=== PATIENT | male | born 1980 | race Caucasian/White ===

== ENCOUNTER 2020-02-14 15:12 | Emergency (ER) | payer BC, OTHER ==
[2020-02-14] MEDS ORDERED: Ibuprofen 800 MG Tab PO ONE (15:37)
--- NOTE | 2020-02-14 15:42 | EDM.PDOC ---
ED HPI GENERAL MEDICAL PROBLEM - General Chief Complaint: Respiratory Problem Stated Complaint: SOB/COUGH/SORE THROAT Time Seen by Provider: 02/14/20 15:26 Source of Information: Reports: Patient History Limitations: Reports: No Limitations - History of Present Illness INITIAL COMMENTS - FREE TEXT/NARRATIVE: 39-year-old male presents to the ED for evaluation of minimally productive cough for the better part of 6 days. Sore throat for 4 days which is better the last day and a half. Decreased appetite. Increased shortness of breath gradually worsening over the last 2 days. 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 Symptoms started about 07 February and he was tested for COVID at that time and proved to be negative. However symptoms have continued and in fact worsened as far shortness of breath since that time. He is not bringing up any sputum. Denies any hemoptysis. Fever but no defined chills. Diarrhea nausea or vomiting. No genitourinary complaints patient has a history of asthma and uses an inhaler daily as well as allergic rhinitis. He is a very large fellow at 208 kg but denies any history of diabetes. Onset: Gradual Onset Date: 02/08/20 Duration: Day(s):, Constant, Getting Worse (Getting more short of breath.) Location: Reports: Chest (Dyspnea worse on exertion.), Other (Fever) Quality: Reports: Other (Dyspnea getting worse over the last 2 days) Severity: Moderate Improves with: Reports: Rest Worsens with: Reports: Movement (Worse on exertion.) Context: Reports: Sick Contact (Works in a survey crew in apparent area over the remembers that he travels within the same vehicle to the workplace have proved to be COVID positive.). Denies: Activity, Exercise, Lifting, Trauma, Other Associated Symptoms: Reports: Cough (Nonproductive), Fever/Chills (Fever with no chills), Loss of Appetite, Malaise, Shortness of Breath. 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.) - Related Data Allergies Allergy/AdvReac Type Severity Reaction Status Date / Time No Known Allergies Allergy Verified 02/14/20 15:35 Home Meds: Home Meds Albuterol [Proair HFA] 1 puff INH QID PRN 06/18/15 [History] Formoterol/Mometasone [Dulera 100 MCG/5 MCG] 1 puff INH BID 06/18/15 [History] Montelukast [Singulair] 10 mg PO DAILY 06/18/15 [History] Albuterol [Proventil Neb Soln] 2.5 mg .XX Q3H #60 neb 02/14/20 [Rx] Albuterol [Proventil Neb Soln] 2.5 mg .XX Q3H PRN #4 neb 02/14/20 [Rx] Doxycycline [Vibra-Tabs] 100 mg PO Q12HR #20 tab 02/14/20 [Rx] amLODIPine [Norvasc] 10 mg PO DAILY #30 tab 02/14/20 [Rx] dexAMETHasone [Dexamethasone] 4 mg PO Q8H #15 tablet 02/14/20 [Rx] Past Medical History Other HEENT History: sinus surgery, wears glasses Cardiovascular History: Reports: Hypertension Respiratory History: Reports: Asthma (History of asthma and has a home nebulizer. He does not have any albuterol for it or he states that what he does have is way out of date. 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 Denies: Chills, Weight Loss HEENT: Reports: Glasses Respiratory: Reports: Shortness of Breath, Cough. Denies: Wheezing, Pleuritic Chest Pain, Sputum, Hemoptysis (Nonproductive), Other Cardiovascular: Reports: Dyspnea on Exertion. Denies: No Symptoms, Chest Pain, Blood Pressure Problem (Blood pressure is markedly elevated likely not correct since the pulse pressure is too close together.), Claudication, Edema, Lightheadedness, Orthopnea, Palpitations, PND, Syncope Endocrine: Reports: Fatigue GI/Abdominal: Reports: Decreased Appetite, Nausea, Vomiting. Denies: Diarrhea : Reports: No Symptoms Musculoskeletal: Reports: No Symptoms Skin: Reports: No Symptoms Neurological: Reports: No Symptoms Psychiatric: Reports: No Symptoms Hematologic/Lymphatic: Reports: No Symptoms Immunologic: Reports: No Symptoms ED EXAM, GENERAL - Physical Exam Exam: See Below Exam Limited By: Other (Temperature is 36.9 although he feels warmer to palpation than this. Heart rate resting is 114 respiratory is 22 with O2 sats of 95% on room air BP recorded at 161/124 which is felt to be incorrect due to the pulse pressure being too close together. He is a very large fellow and a very large coffee is going to be needed to obtain accurate BP.) General Appearance: Alert, No Apparent Distress, Other (Patient does feel warm to palpation.) Eye Exam: Bilateral Eye: Normal Inspection, PERRL Ears: Normal TMs Throat/Mouth: Normal Inspection, Normal Lips, Normal Oropharynx, Other (No signs of oropharyngeal inflammation) Head: Atraumatic, Normocephalic Neck: Normal Inspection, Supple, Non-Tender, Full Range of Motion. No: Carotid Bruit, Lymphadenopathy (L), Lymphadenopathy (R) Respiratory/Chest: No Accessory Muscle Use, Chest Non-Tender, Respiratory Distress (Mild tachypnea.), Decreased Breath Sounds (Sounds are diminished to both posterior lung saldivar due to his size. I feel there are fine crackles in both bases that do not clear with coughing.). No: Lungs Clear ( The worse on the right side as compared to the left.), Normal Breath Sounds Cardiovascular: Regular Rate, Rhythm, No Edema, No Gallop, No JVD, No Murmur, No Rub Peripheral Pulses: 2+: Posterior Tibial (L), Posterior Tibial (R), Dorsalis Pedis (L), Dorsalis Pedis (R), 3+: Carotid (L), Carotid (R) GI/Abdominal: Normal Bowel Sounds, Soft, Non-Tender, No Organomegaly, No Abnormal Bruit, No Mass, Pelvis Stable, Other (Abdomen is morbidly obese. This limits ability to palpate any solid organs. No masses or hernias identified.) Back Exam: Normal Inspection, Full Range of Motion, Other (Mildly increased lordotic curvature lumbar spine). No: CVA Tenderness (L), CVA Tenderness (R) Extremities: Normal Inspection, Normal Range of Motion, Non-Tender, Pedal Edema (Edema at the ankles.) Neurological: Alert, CN II-XII Intact, Normal Cognition Psychiatric: Normal Affect, Normal Mood Skin Exam: Warm, Dry, Intact, Normal Color, No Rash EKG INTERPRETATION EKG Date: 02/14/20 Time: 16:43 Rhythm: Other (Sinus tachycardia) Rate (Beats/Min): 104 Jasper: LAD-Left Jasper Deviation (-56 degrees.) P-Wave: Enlarged (Left atrial hypertrophy pattern) QRS: Other (Poor R wave progression through all the anterior septal leads consider old anteroseptal myocardial infarction. There are Q waves in leads III and aVF combined with an old inferior wall myocardial infarction.) QT: Normal EKG Interpretation Comments: Abnormal ECG Course - Vital Signs Last Recorded V/S: Last Vital Signs Temp 36.9 C 02/14/20 15:27 Pulse 114 H 02/14/20 15:27 Resp 22 H 02/14/20 15:27 BP 182/116 H 02/14/20 19:34 Pulse Ox 94 L 02/14/20 21:20 - Orders/Labs/Meds Orders: Active Orders 24 hr Category Date Time Status EKG Documentation Completion [RC] STAT Care 02/14/20 15:39 Active RT Aerosol Therapy [RC] ASDIRECTED Care 02/14/20 21:11 Active CULTURE BLOOD [BC] Stat Lab 02/14/20 16:00 Received CULTURE BLOOD [BC] Stat Lab 02/14/20 16:50 Received URINALYSIS W/MICROSCOPIC [UA W/MICROSCOPIC] [URIN] Stat Lab 02/14/20 15:39 Ordered Albuterol/Ipratropium [DuoNeb 3.0-0.5 MG/3 ML] Med 02/14/20 21:11 Active 3 ml NEB Q4H PRN Dextrose 5%-0.9% NaCl [Dextrose 5%-Normal Saline] 1,000 Med 02/14/20 15:45 Active ml IV ASDIRECTED Sodium Chloride 0.9% [Normal Saline] 45 ml Med 02/14/20 18:00 Active IV ASDIRECTED Sodium Chloride 0.9% [Normal Saline] 45 ml Med 02/14/20 19:00 Active IV ASDIRECTED Sodium Chloride 0.9% [Saline Flush] Med 02/14/20 17:49 Active 10 ml FLUSH ONETIME PRN Sodium Chloride 0.9% [Saline Flush] Med 02/14/20 18:53 Active 10 ml FLUSH ONETIME PRN Blood Culture x2 Reflex Set [OM.PC] Stat Oth 02/14/20 15:40 Ordered Medication Orders Albuterol/Ipratropium (Duoneb 3.0-0.5 Mg/3 Ml) 3 ml NEB Q4H PRN PRN Reason: Shortness Of Breath/wheezing Last Admin: 02/14/20 21:18 Dose: 3 ml Documented by: BRIDGER Dextrose/Sodium Chloride (Dextrose 5%-Normal Saline) 1,000 mls @ 500 mls/hr IV ASDIRECTED JERAMIE Last Admin: 02/14/20 16:56 Dose: 500 mls/hr Documented by: REENA Sodium Chloride (Normal Saline) 45 mls @ 40 mls/hr IV ASDIRECTED JERAMIE Last Admin: 02/14/20 18:56 Dose: 40 mls/hr Documented by: Infusion: 02/14/20 18:56 Dose: 40 mls/hr Documented by: Admin: 02/14/20 18:22 Dose: 40 mls/hr Documented by: YEFRI Sodium Chloride (Normal Saline) 45 mls @ 40 mls/hr IV ASDIRECTED JERAMIE Sodium Chloride (Saline Flush) 10 ml FLUSH ONETIME PRN PRN Reason: Keep Vein Open Last Admin: 02/14/20 18:57 Dose: 10 ml Documented by: Admin: 02/14/20 18:22 Dose: 10 ml Documented by: YEFRI Sodium Chloride (Saline Flush) 10 ml FLUSH ONETIME PRN PRN Reason: Keep Vein Open Labs: Laboratory Tests 02/14/20 02/14/20 02/14/20 Range/Units 16:00 16:50 16:50 WBC 9.02 (4.23-9.07) K/mm3 RBC 4.90 (4.63-6.08) M/mm3 Hgb 14.2 (13.7-17.5) gm/dl Hct 42.0 (40.1-51.0) % MCV 85.7 (79.0-92.2) fl MCH 29.0 (25.7-32.2) pg MCHC 33.8 (32.2-35.5) g/dl RDW Std Deviation 40.4 (35.1-43.9) fL Plt Count 282 (163-337) K/mm3 MPV 10.6 (9.4-12.3) fl Neut % (Auto) 58.8 (34.0-67.9) % Lymph % (Auto) 25.9 (21.8-53.1) % [place] % (Auto) 10.2 (5.3-12.2) % Eos % (Auto) 4.0 (0.8-7.0) Baso % (Auto) 0.7 (0.1-1.2) % Neut # (Auto) 5.30 (1.78-5.38) K/mm3 Lymph # (Auto) 2.34 (1.32-3.57) K/mm3 [place] # (Auto) 0.92 H (0.30-0.82) K/mm3 Eos # (Auto) 0.36 (0.04-0.54) K/mm3 Baso # (Auto) 0.06 (0.01-0.08) K/mm3 D-Dimer, Quantitative (0.19-0.50) mg/L Sodium 137 (136-145) mEq/L Potassium 3.7 (3.5-5.1) mEq/L Chloride 102 (98-107) mEq/L Carbon Dioxide 27 (21-32) mEq/L Anion Gap 11.7 (5-15) BUN 13 (7-18) mg/dL Creatinine 1.1 (0.7-1.3) mg/dL Est Cr Clr Drug Dosing 88.38 mL/min Estimated GFR (MDRD) > 60 (>60) mL/min BUN/Creatinine Ratio 11.8 L (14-18) Glucose 100 (74-106) mg/dL Hemoglobin A1c (4.50-6.20) % Calcium 8.8 (8.5-10.1) mg/dL Magnesium 1.9 (1.8-2.4) mg/dl Ferritin (26-388) ng/ml Total Bilirubin 0.5 (0.2-1.0) mg/dL AST 25 (15-37) U/L ALT 46 (16-63) U/L Alkaline Phosphatase 109 (46-116) U/L Lactate Dehydrogenase 221 (85-227) U/L Troponin I < 0.017 (0.00-0.056) ng/mL C-Reactive Protein 1.9 H* (<1.0) mg/dL NT-Pro-B Natriuret Pep (0-125) pg/mL Total Protein 8.1 (6.4-8.2) g/dl Albumin 3.4 (3.4-5.0) g/dl Globulin 4.7 gm/dL Albumin/Globulin Ratio 0.7 L (1-2) SARS Virus RNA (PCR) Negative (NEGATIVE) 02/14/20 02/14/20 02/14/20 Range/Units 16:50 16:50 16:50 WBC (4.23-9.07) K/mm3 RBC (4.63-6.08) M/mm3 Hgb (13.7-17.5) gm/dl Hct (40.1-51.0) % MCV (79.0-92.2) fl MCH (25.7-32.2) pg MCHC (32.2-35.5) g/dl RDW Std Deviation (35.1-43.9) fL Plt Count (163-337) K/mm3 MPV (9.4-12.3) fl Neut % (Auto) (34.0-67.9) % Lymph % (Auto) (21.8-53.1) % [place] % (Auto) (5.3-12.2) % Eos % (Auto) (0.8-7.0) Baso % (Auto) (0.1-1.2) % Neut # (Auto) (1.78-5.38) K/mm3 Lymph # (Auto) (1.32-3.57) K/mm3 [place] # (Auto) (0.30-0.82) K/mm3 Eos # (Auto) (0.04-0.54) K/mm3 Baso # (Auto) (0.01-0.08) K/mm3 D-Dimer, Quantitative (0.19-0.50) mg/L Sodium (136-145) mEq/L Potassium (3.5-5.1) mEq/L Chloride (98-107) mEq/L Carbon Dioxide (21-32) mEq/L Anion Gap (5-15) BUN (7-18) mg/dL Creatinine (0.7-1.3) mg/dL Est Cr Clr Drug Dosing mL/min Estimated GFR (MDRD) (>60) mL/min BUN/Creatinine Ratio (14-18) Glucose (74-106) mg/dL Hemoglobin A1c 6.30 H (4.50-6.20) % Calcium (8.5-10.1) mg/dL Magnesium (1.8-2.4) mg/dl Ferritin 400 H (26-388) ng/ml Total Bilirubin (0.2-1.0) mg/dL AST (15-37) U/L ALT (16-63) U/L Alkaline Phosphatase (46-116) U/L Lactate Dehydrogenase (85-227) U/L Troponin I (0.00-0.056) ng/mL C-Reactive Protein (<1.0) mg/dL NT-Pro-B Natriuret Pep 69 (0-125) pg/mL Total Protein (6.4-8.2) g/dl Albumin (3.4-5.0) g/dl Globulin gm/dL Albumin/Globulin Ratio (1-2) SARS Virus RNA (PCR) (NEGATIVE) 02/14/20 Range/Units 16:50 WBC (4.23-9.07) K/mm3 RBC (4.63-6.08) M/mm3 Hgb (13.7-17.5) gm/dl Hct (40.1-51.0) % MCV (79.0-92.2) fl MCH (25.7-32.2) pg MCHC (32.2-35.5) g/dl RDW Std Deviation (35.1-43.9) fL Plt Count (163-337) K/mm3 MPV (9.4-12.3) fl Neut % (Auto) (34.0-67.9) % Lymph % (Auto) (21.8-53.1) % [place] % (Auto) (5.3-12.2) % Eos % (Auto) (0.8-7.0) Baso % (Auto) (0.1-1.2) % Neut # (Auto) (1.78-5.38) K/mm3 Lymph # (Auto) (1.32-3.57) K/mm3 [place] # (Auto) (0.30-0.82) K/mm3 Eos # (Auto) (0.04-0.54) K/mm3 Baso # (Auto) (0.01-0.08) K/mm3 D-Dimer, Quantitative 5.26 H (0.19-0.50) mg/L Sodium (136-145) mEq/L Potassium (3.5-5.1) mEq/L Chloride (98-107) mEq/L Carbon Dioxide (21-32) mEq/L Anion Gap (5-15) BUN (7-18) mg/dL Creatinine (0.7-1.3) mg/dL Est Cr Clr Drug Dosing mL/min Estimated GFR (MDRD) (>60) mL/min BUN/Creatinine Ratio (14-18) Glucose (74-106) mg/dL Hemoglobin A1c (4.50-6.20) % Calcium (8.5-10.1) mg/dL Magnesium (1.8-2.4) mg/dl Ferritin (26-388) ng/ml Total Bilirubin (0.2-1.0) mg/dL AST (15-37) U/L ALT (16-63) U/L Alkaline Phosphatase (46-116) U/L Lactate Dehydrogenase (85-227) U/L Troponin I (0.00-0.056) ng/mL C-Reactive Protein (<1.0) mg/dL NT-Pro-B Natriuret Pep (0-125) pg/mL Total Protein (6.4-8.2) g/dl Albumin (3.4-5.0) g/dl Globulin gm/dL Albumin/Globulin Ratio (1-2) SARS Virus RNA (PCR) (NEGATIVE) Meds: Medications Generic Name Dose Route Start Last Admin Trade Name Freq PRN Reason Stop Dose Admin Albuterol/Ipratropium 3 ml 02/14/20 21:11 02/14/20 21:18 Duoneb 3.0-0.5 Mg/3 Ml NEB 3 ml Q4H PRN Administration Shortness Of Breath/wheezing Dextrose/Sodium Chloride 1,000 mls @ 500 mls/hr 02/14/20 15:45 02/14/20 16:56 Dextrose 5%-Normal Saline IV 500 mls/hr ASDIRECTED JERAMIE Administration Sodium Chloride 45 mls @ 40 mls/hr 02/14/20 18:00 02/14/20 18:56 Normal Saline IV 40 mls/hr ASDIRECTED JERAMIE Administration Sodium Chloride 45 mls @ 40 mls/hr 02/14/20 19:00 Normal Saline IV ASDIRECTED JERAMIE Sodium Chloride 10 ml 02/14/20 17:49 02/14/20 18:57 Saline Flush FLUSH 10 ml ONETIME PRN Administration Keep Vein Open Sodium Chloride 10 ml 02/14/20 18:53 Saline Flush FLUSH ONETIME PRN Keep Vein Open Discontinued Medications Generic Name Dose Route Start Last Admin Trade Name Freq PRN Reason Stop Dose Admin Amlodipine Besylate 10 mg 02/14/20 19:29 02/14/20 19:34 Norvasc PO 02/14/20 19:30 10 mg ONETIME ONE Administration Dexamethasone 10 mg 02/14/20 21:46 02/14/20 22:16 Dexamethasone PO 02/14/20 21:47 10 mg ONETIME ONE Administration Doxycycline Hyclate 200 mg 02/14/20 21:46 02/14/20 22:16 Vibramycin PO 02/14/20 21:47 200 mg ONETIME ONE Administration Hydralazine HCl 10 mg 02/14/20 19:28 02/14/20 19:34 Apresoline IVPUSH 02/14/20 19:29 10 mg ONETIME ONE Administration Ibuprofen 800 mg 02/14/20 15:37 02/14/20 16:56 Motrin PO 02/14/20 15:38 800 mg ONETIME ONE Administration Iopamidol 100 ml 02/14/20 17:49 02/14/20 18:54 Isovue-370 (76%) IVPUSH 02/14/20 17:50 100 ml ONETIME ONE Administration Iopamidol 100 ml 02/14/20 18:53 Isovue-370 (76%) IVPUSH 02/14/20 18:54 ONETIME ONE - Radiology Interpretation Free Text/Narrative:: 39-year-old male presents to the ED with a 6-day history of illness. Started with sore throat minimal nasal coryza and is gradually progressed to more dyspnea over the last few days. He was tested once for with for COVID I believe on the and was negative. 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 He is morbidly obese and has a history of asthma using inhaler as needed. He is not known to be diabetic. Patient will be reassessed for COVID as he has many of the signs and symptoms and risk factors. We will be D5 normal saline at 500 mils per hour. Given Motrin 800 mg by mouth for fever relief although nurses recorded temperature to be normal he feels warmer to palpation. - Re-Assessments/Exams Free Text/Narrative Re-Assessment/Exam: 02/14/20 16:11 chest x-ray portable 1 view reveals a lot of soft tissue overlying the lung saldivar. He has a very prominent right pulmonary artery. Not detect any obvious pneumonia but the chest x-ray is of very poor quality due to the patient's size. 02/14/20 17:19 White count is normal at 9.02. The auto differential shows 59% neutrophils. Hemoglobin is 14.2 with hematocrit of 42.0. Platelet counts 28 2,000 02/14/20 17:34 Hemoglobin A1c is 6.30. COVID 19 virus is negative. D-dimer just came back elevated at 5.26. His O2 sats are between 93 and 94%. His renal function has not yet back but it appears he will need a CT pulmonary angiogram. An IV has now been established. 02/14/20 17:47 Sodium is 137 with a potassium of 3.7. Chloride is 102 with a bicarb of 27. Anion gap is normal at 11.7. BUN is 13 with a creatinine of 1.1 and a GFR greater than 60. Glucose was 100 calcium is 8.8 with a magnesium of 1.9 serum ferritin is elevated at 400. Upper limits of normal our lab is 388. Liver function is normal. LDH is 221. Troponin I is less than 0.017. C- reactive protein is mildly elevated at 1.9. BNP is 69 total protein 8.1 with an albumin fraction of 3.4. Patient's renal function will allow CT pulmonary angiogram which will be ordered at this time 02/14/20 18:45 18 pulmonary angiogram test was a dismal failure due to the size of the IV established which was only a 22-gauge. Not enough contrast could be infused fast enough to visualize any of his pulmonary arteries. Therefore the decision will be to try and find a antecubital vein large enough to handle a large volume of contrast. If this fails then we will have Doppler ultrasound performed in both of his lower extremities to see if he has a clot or DVT which would be an indication for anticoagulation as well. 02/14/20 18:53 nurses were able to establish a antecubital in the right side. We will therefore reattempt a CT pulmonary angiogram. 02/14/20 19:10 the IV that was placed infiltrated and approximately 80 mils of contrast was administered subcutaneously. Cold packs will be placed to the area. I will have ultrasound come and try and do Doppler ultrasound of both lower extremities to see if we can find a DVT in his lower extremities to account for elevated d-dimer. Compresses are being placed on his infiltrate did site right upper extremity. He states it is no longer painful. It was painful after initial injection of contrast. 02/14/20 19:30 blood pressure remains elevated at 182/116 indicating that he has significant hypertension issues. He will be given hydralazine 10 mg IV through a 22-gauge needle but is still functioning. He will be given amlodipine 10 mg by mouth. Will likely need to start amlodipine 10 mg once daily and Valsartan 160mg po od as well. 02/14/20 19:[address] chest was sent to radiologist for their opinion. He indicates mediastinum and hilar regions show no adenopathy or masses fatty infiltration is partially seen within the liver. Small nodular density is noted within the left lung apex measuring about 1 cm. Slight parenchymal density is also noted more inferiorly within the left upper chest possibly due to atelectasis or minimal area of pneumonia measuring 2.4 cm in size. Lungs otherwise are clear. No pleural effusions are seen. Area of minimal pneumonia or suspect pneumonia may be the cause of his elevated d-dimer. Will await the results of his Doppler ultrasound of both lower extremities. 02/14/20 21:12 lead ultrasound has been performed on both lower extremities and there is no evidence of DVT to explain elevated d-dimer of 5.26. I suspect the patch of pneumonia identified on CT is likely the cause of his dyspnea and elevated d-dimer. Going to give him a DuoNeb at this time to see if this alleviates some of his dyspnea. His blood pressure remains elevated but it has come down to 177/102 with a hydralazine IV. 02/14/20: 21:45: Patient did get good relief from the DuoNeb. He has a nebulizer at home and will therefore be given albuterol nebs to be used every 3 hours. For relief of dyspnea. Will be placed on doxycycline 100 mg twice daily for the next 10 days for pneumonia. Given a dose of dexamethasone 10 mg by mouth in the ED and a prescription for prednisone 20 mg twice daily further 5 days and then once daily in the morning for another 5 days to relieve inflammation. He has 3 more days off of work and will return to medical care if not fit for work at that time. Secondly uncontrolled essential hypertension notified on examination. This was using the largest cuff that we have in the department. He had persistent elevated blood pressures between 180 and 205 systolically and the lowest we achieved diastolically was 114. Did respond to hydralazine 10 mg IV with BP dropping to 160/99. He was given amlodipine 10 mg by mouth in the ED and will continue this medication once daily at bedtime as an outpatient. Advised follow-up in the clinic in 10 days time for blood pressure review. Well may require a second agent to control blood pressure such as valsartan 160 mg daily. Departure - Departure Time of Disposition: 21:40 Disposition: Home, Self-Care 01 Condition: Fair Clinical Impression: Uncontrolled stage 2 hypertension Pneumonia Qualifiers: Pneumonia type: due to unspecified organism Laterality: left Lung location: upper lobe of lung Qualified Code(s): J18.9 - Pneumonia, unspecified organism - Discharge Information *PRESCRIPTION DRUG MONITORING PROGRAM REVIEWED*: Not Applicable *COPY OF PRESCRIPTION DRUG MONITORING REPORT IN PATIENT CHARLES: Not Applicable Prescriptions: dexAMETHasone [Dexamethasone] 4 mg PO Q8H #15 tablet amLODIPine [Norvasc] 10 mg PO DAILY #30 tab Albuterol [Proventil Neb Soln] 2.5 mg .XX Q3H PRN #4 neb PRN Reason: dyspnea. asthma. Pneumonia Albuterol [Proventil Neb Soln] 2.5 mg .XX Q3H #60 neb Doxycycline [Vibra-Tabs] 100 mg PO Q12HR #20 tab Instructions: Hypertension, Adult, [id number], Community-Acquired Pneumonia, Adult, Cvax-sm-Dger Forms: ED Department Discharge Additional Instructions: Evaluation in the emergency room today in regards to shortness of breath that has progressively worsened over the last for 5 days. Concern was for possible COVID virus infection since coworkers have been diagnosed with this disorder in the last 10 days. You had a test earlier this month which proved to be negative and testing today was again negative. Lab work however revealed an elevated d- dimer assay which is a measurement of blood clotting and your level was 5.2 with normal being 1 or less. The reason for this was unclear it can be elevated for a number of reasons but the concern was be blood clot in the lungs causing your shortness of breath called a pulmonary embolism. Unfortunately attempts x2 to give you intravenous contrast to fill of the blood vessels in the lungs with dye to rule out blood clots failed due to IV being too small in caliber and the second IV had blown before the contrast could feel the lungs. The CT of the chest was still completed and interestingly did show an area about the size of a golf ball of infiltrate suggestive of pneumonia in the left upper lung. This in itself could be the reason for the elevated d-dimer assay. Therefore appears that you have a small area of pneumonia in the left upper lung field. Treatment is therefore antibiotic doxycycline 100 mg twice daily for the next 10 days. The first 2 tablets were provided in the emergency room today. You will need to use albuterol Nebules 1 every 2-3 hours as necessary for relief of shortness of breath as well. He will also be started on steroid dexamethasone 4 mg 3 times daily for the next 5 days to alleviate shortness of breath and reduce inflammation of the lungs. Be off quarantine in 3 more days and I feel this will likely be a suitable length of time to start to feel better with above treatment plan. If you do not feel capable of returning to work in 3 days time you need to be seen again. The other problem identified while you were in the ED is uncontrolled high blood pressure. Blood pressure is significantly elevated above normal levels. Normal levels for you should be 185 on the top and 85-80 on the lower number. Your blood pressure on average was between 180 and 203 on the top and never got below 102 on the bottom . Given medication hydralazine 10 mg intravenously and oral amlodipine 10 mg by mouth for blood pressure control. You will need to miner pick a prescription for amlodipine 10 mg to be taken once daily at bedtime for blood pressure control. You will need to follow-up with a primary care provider clinic sometime within the next 10 days for blood pressure review as you may well need a second blood pressure medication to bring your blood pressure under control. Sepsis Event Note (ED) - Evaluation Sepsis Screening Result: No Definite Risk - Focused Exam Vital Signs: Vital Signs Temp Pulse Resp BP BP Pulse Ox Pulse Ox 02/14/20 21:20 94 L 02/14/20 19:34 182/116 H 02/14/20 15:27 36.9 C 114 H 22 H 161/124 H 95 - My Orders Last 24 Hours: My Active Orders 02/14/20 15:39 EKG Documentation Completion [RC] STAT URINALYSIS W/MICROSCOPIC [UA W/MICROSCOPIC] [URIN] Stat 02/14/20 15:40 Blood Culture x2 Reflex Set [OM.PC] Stat 02/14/20 15:45 Dextrose 5%-0.9% NaCl [Dextrose 5%-Normal Saline] 1,000 ml IV ASDIRECTED 02/14/20 16:00 CULTURE BLOOD [BC] Stat 02/14/20 16:50 CULTURE BLOOD [BC] Stat 02/14/20 17:49 Sodium Chloride 0.9% [Saline Flush] 10 ml FLUSH ONETIME PRN 02/14/20 18:00 Sodium Chloride 0.9% [Normal Saline] 45 ml IV ASDIRECTED 02/14/20 18:53 Sodium Chloride 0.9% [Saline Flush] 10 ml FLUSH ONETIME PRN 02/14/20 19:00 Sodium Chloride 0.9% [Normal Saline] 45 ml IV ASDIRECTED 02/14/20 21:11 RT Aerosol Therapy [RC] ASDIRECTED Albuterol/Ipratropium [DuoNeb 3.0-0.5 MG/3 ML] 3 ml NEB Q4H PRN - Assessment/Plan Last 24 Hours: My Active Orders 02/14/20 15:39 EKG Documentation Completion [RC] STAT URINALYSIS W/MICROSCOPIC [UA W/MICROSCOPIC] [URIN] Stat 02/14/20 15:40 Blood Culture x2 Reflex Set [OM.PC] Stat 02/14/20 15:45 Dextrose 5%-0.9% NaCl [Dextrose 5%-Normal Saline] 1,000 ml IV ASDIRECTED 02/14/20 16:00 CULTURE BLOOD [BC] Stat 02/14/20 16:50 CULTURE BLOOD [BC] Stat 02/14/20 17:49 Sodium Chloride 0.9% [Saline Flush] 10 ml FLUSH ONETIME PRN 02/14/20 18:00 Sodium Chloride 0.9% [Normal Saline] 45 ml IV ASDIRECTED 02/14/20 18:53 Sodium Chloride 0.9% [Saline Flush] 10 ml FLUSH ONETIME PRN 02/14/20 19:00 Sodium Chloride 0.9% [Normal Saline] 45 ml IV ASDIRECTED 02/14/20 21:11 RT Aerosol Therapy [RC] ASDIRECTED Albuterol/Ipratropium [DuoNeb 3.0-0.5 MG/3 ML] 3 ml NEB Q4H PRN
[2020-02-14] MEDS ORDERED: Dextrose 5%-0.9% NaCl 1,000 ML IV SCH (15:45)
--- NOTE | 2020-02-14 16:12 | CR ---
Chest: Portable view of the chest was obtained. Comparison: No prior chest imaging. Heart size and mediastinum are normal. Lungs are clear with no acute parenchymal change. Bony structures are grossly intact. Impression: 1. Nothing acute is appreciated on portable chest x-ray. Diagnostic code #1 This report was dictated in MDT
[2020-02-14 17:28] LABS: HEMOGLOBIN A1C 6.3 % (4.50-6.20)
[2020-02-14] MEDS: Sodium Chloride 0.9% 10 ML Syringe FLUSH PRN ×2 (18:22→18:57)
[2020-02-14] MEDS: Sodium Chloride 0.9% 45 ML IV SCH ×2 (18:22→18:56)
[2020-02-14] MEDS: Iopamidol 755 Mg/ML 100 ML Bottle IVPUSH ONE ×2 (18:22→18:54)
[2020-02-14] MEDS ORDERED: Iopamidol 755 Mg/ML 100 ML Bottle IVPUSH ONE (18:53)
[2020-02-14] MEDS ORDERED: Sodium Chloride 0.9% 10 ML Syringe FLUSH PRN (18:53)
[2020-02-14] MEDS ORDERED: Sodium Chloride 0.9% 45 ML IV SCH (19:00)
[2020-02-14] MEDS ORDERED: hydrALAZINE 20 MG/ML SDV IVPUSH ONE (19:28)
[2020-02-14] MEDS ORDERED: amLODIPine 10 MG Tab PO ONE (19:29)
--- NOTE | 2020-02-14 19:38 | CT ---
CT chest Technique: Multiple axial sections through the chest were obtained. Study performed as a pulmonary angiogram protocol although due to inadequate intravenous access infiltration occurred and study is basically a noncontrast chest CT exam. Comparison: Prior chest x-ray performed earlier on the same day (3:33 PM). Mediastinum and hilar regions show no adenopathy or mass. Fatty infiltration is partially seen within the liver. Small nodular density is noted with left lung apex measuring about 1 cm. Slight parenchymal density is also noted more inferiorly within the left upper chest possibly due to atelectasis or minimal area of pneumonia measuring 2.4 cm in size. Lungs otherwise are clear. No pleural effusions are seen. Bone window settings were reviewed which show no acute osseous finding. Mild degenerative change is scattered within the spine. Impression: 1. Nodular density within the left upper chest. Findings may represent scarring but follow-up chest CT is recommended without contrast in 6 months to confirm stability. Follow-up would occur in July or August,. 2. Minimal parenchymal density more inferiorly than the first finding within the left upper chest possibly due to atelectasis or minimal area of pneumonia. This finding measures 2.4 cm in size. 3. No additional abnormality is seen other than fatty infiltration within the liver. Diagnostic code #3 Study was dictated in MDT
--- NOTE | 2020-02-14 20:44 | US ---
Bilateral lower extremity deep venous ultrasound: Duplex and color Doppler evaluation was obtained of the right and left common femoral, proximal greater saphenous, superficial femoral, popliteal, posterior tibial and peroneal veins. Technologist's note: Suboptimal exam due to body habitus Findings: Nonvisualized phasic flow is noted within the posterior tibial and peroneal veins on both sides. These 2 veins show normal compression and augmentation. Other veins show normal phasic flow, augmentation and compression. Impression: 1. No definite evidence of deep venous thrombosis within the right or left lower extremities. Diagnostic code #1 Study was dictated in MDT
[2020-02-14] MEDS ORDERED: Albuterol/Ipratropium 3.0-0.5 MG/3 ML Neb Soln NEB PRN (21:11)
[2020-02-14] MEDS ORDERED: Dexamethasone 4 MG Tab PO ONE (21:46)
[2020-02-14] MEDS ORDERED: Doxycycline 100 MG Cap PO ONE (21:46)
[2020-02-14 22:50] VITALS: BP 180/110; PULSE 120
== END 2020-02-14 22:22 | disposition home or self-care (01) ==
LOC: JD.ED 15:12
DX: J18.9 Pneumonia, unspecified organism (principal); I10 Essential (primary) hypertension; J45.909 Unspecified asthma, uncomplicated; E66.9 Obesity, unspecified; Z68.44 Body mass index [BMI] 60.0-69.9, adult; Z20.828 Contact with and (suspected) exposure to other viral communicable diseases; Z79.899 Other long term (current) drug therapy
CPT/HCPCS: 36415; 71045; 71250; 80053; 82728; 83036; 83615; 83735; 83880; 84484; 85025; 85379; 86140; 87040; 87635; 93005; 93970; 94640; 96374; 99285; A9270; J0360; J7042; J7050; J8540; Q9967; 93010; 99284; J7620-GY; U0002